=== PATIENT | male | born 1960 | race Caucasian/White ===

== ENCOUNTER 2025-08-01 17:30 | Emergency (ER) | payer BC, SELFPAY ==
[2025-08-01 18:24] VITALS: BP 177/95; PULSE 85; RESP 19; TEMP 36.7; O2SAT 96; BMI 24.3
--- NOTE | 2025-08-01 19:11 | EKG_ITS ---
[facility] Test Date: 2025-08-01 Pat Name: AMITA GASTON Department: Room: - Gender: Male [employer] Carpenter: : 1960 Requested By: Ayana Ford Order Number: [id number] Reading MD: yAana Ford Measurements Intervals Schaller Rate: 80 P: 71 WI: 145 QRS: 63 QRSD: 100 T: 109 QT: 379 QTc: 437 Interpretive Statements SINUS RHYTHM WITH OCCASIONAL VENTRICULAR PREMATURE COMPLEXES NONSPECIFIC ST & T-WAVE ABNORMALITY No previous ECG available for comparison /store/S0/[id number].pdf
--- NOTE | 2025-08-01 19:12 | PD.EDRME ---
Rapid Medical Screening Exam RME Arrival date/time: 08/01/25 17:30 This is a case of 65-year-old male with history of pneumonia came in in the emergency room due to shortness of breath and chest pain with cough persistence of the symptoms this patient decided to start consulted in the emergency room Chief Complaint: Shortness of Breath/Dyspnea Time Seen by Provider: 08/01/25 18:31 Vital signs: Vital Signs Temperature 98.0 F 08/01/25 18:24 Pulse Rate 85 08/01/25 18:24 Respiratory Rate 19 08/01/25 18:24 Blood Pressure 177/95 H 08/01/25 18:24 Pulse Oximetry (%) 96 08/01/25 18:24 Oxygen Delivery Method Room Air 08/01/25 18:24 Exam: Lung sounds wheezing rhonchi normal rate regular rhythm no murmur Clinical Impression: Shortness of breath
--- NOTE | 2025-08-01 19:13 | XR_ITS ---
EXAMINATION: PA chest single view TECHNIQUE: Upright PA chest single view Date and time: August 01, 2025, 1943 hours, comparison June 23, 2024 INDICATIONS: Shortness of breath chest pain FINDINGS: Normal heart size Median sternotomy wires Pneumonia in the left perihilar basilar region Suspicious 21 mm pulmonary nodule in the left upper lobe and suspicious for 11 mm pulmonary nodule right upper lobe Prominent osteopenia IMPRESSION: Pneumonia in the left perihilar left basilar region Recommend CT chest without contrast follow-up to exclude pulmonary masses in both the left and right lung
--- NOTE | 2025-08-01 19:15 | EDNOTE_ITS ---
ED SOB =RME/HPI General Chief Complaint: Shortness of Breath/Dyspnea Stated Complaint: SOB LUNG PAIN, THINKS HE HAS PNA AGAIN Time Seen by Provider: 08/01/25 18:31 Arrival date/time: 08/01/25 17:30 65-year-old male patient with no past medical history except for chronic smoking, came in for evaluation regarding left-sided chest discomfort. Has been having cough, worsening cough, associated with pain on coughing, especially on the left chest, severity moderate. Patient continues to smoke, consuming 1-1/2 pack of cigarettes per day. He denies any fever. Patient thinks he had pneumonia again. Patient is ambulatory. Denies any trauma or fall. RME / HPI RME / HPI Narrative: 08/01/25 17:30 This is a case of 65-year-old male with history of pneumonia came in in the emergency room due to shortness of breath and chest pain with cough persistence of the symptoms this patient decided to start consulted in the emergency room Exam: Lung sounds wheezing rhonchi normal rate regular rhythm no murmur Impression: Shortness of breath Related Data Previous Rx's ?Medication ?Instructions ?Recorded albuterol sulfate 90 mcg/actuation 2 inh inhalation Q6 H PRN shortness 08/01/25 aerosol inhaler of breath or wheezing #8.5 g amarilis levofloxacin 750 mg tablet 750 mg PO Q24H 7 days #7 ta bs 08/01/25 prednisone 50 mg tablet 50 mg PO QDAY #5 tabs Allergies Allergy/AdvReac Type Severity Reaction Status Date / Time No Known Allergies Allergy Verified 08/01/25 17:33 Review of Systems Review of Systems Narrative Review of Systems: Review of system reviewed and within normal limits except mentioned in HPI ED Exam Narrative Physical exam: VITAL SIGNS: Reviewed. GENERAL APPEARANCE: Alert and interactive, follows commands, no acute distress, HEAD AND FACE: Non-traumatic. ENT: PERRL, pink conjunctivitis, eyelid no trauma, Mucous membrane moist. NECK: Supple, nontender, no nuchal rigidity. CHEST: No tenderness, no crepitus, no paradoxical movement, no retractions. LUNGS: Clear, well ventilated, symmetric, no rales, no wheezing, no ronchi, no stridor, good breath sounds bilaterally. HEART: Regular rate, regular rhythm, no murmur, no gallops. ABDOMEN: Soft, positive bowel sounds, nondistended, no guarding, nontender, no r ebound, no masses, RECTAL: Deferred. GENITAL: Deferred. NEUROLOGICAL: Gross motor function intact sensory function intact, Appropriate for age. MUSCULOSKELETAL: low back nontender, full range of motion. EXTREMITIES: Nontender, full range of motion. SKIN: Color pink, dry, no rash, no lacerations, no abrasions, no contusions. LYMPHATICS: Deferred. Course Quality Measures none Orders Category Date Time Status EKG (ED ONLY) *Do not use* NOW Care 08/01/25 19:11 Completed EKG (ED Only) Stat Exams 08/01/25 19:11 Draft XR chest 1V Stat Exams 08/01/25 19:13 Completed BNP [B-Type Natriuretic Peptide] Stat Lab 08/01/25 19:12 Ordered CBC Stat Lab 08/01/25 19:11 Ordered Comprehensive Metabolic Panel Stat Lab 08/01/25 19:11 Ordered D-Dimer Stat Lab 08/01/25 19:12 Ordered Troponin I Stat Lab 08/01/25 19:11 Ordered Urinalysis Stat Lab 08/01/25 19:11 Ordered Levofloxacin [Levaquin] Med 08/01/25 20:40 Once 500 mg PO X1 ONE predniSONE Med 08/01/25 20:40 Once 60 mg PO X1 ONE Vital Signs Vital signs: Vital Signs Temperature 98.0 F 08/01/25 18:24 Pulse Rate 85 08/01/25 18:24 Respiratory Rate 19 08/01/25 18:24 Blood Pressure 177/95 H 08/01/25 18:24 Pulse Oximetry (%) 96 08/01/25 18:24 Oxygen Delivery Method Room Air 08/01/25 18:24 Shortness of Breath / Dyspnea MDM Narrative MDM Narrative:: 65-year-old male patient with no past medical history except for chronic smoking, came in for evaluation regarding left-sided chest discomfort. Has been having cough, worsening cough, associated with pain on coughing, especially on the left chest, severity moderate. Patient continues to smoke, consuming 1-1/2 pack of cigarettes per day. He denies any fever. Patient thinks he had pneumonia again. Patient is ambulatory. Denies any trauma or fall. Patient refused blood draw. EKG showed normal sinus rhythm, ventricular rate of 80 bpm, no ST segment elevation or depression noted. Chest x-ray showed pneumonia otherwise unremarkable. Results discussed with the patient. Patient was also advised to follow-up closely with PCP, for elective CT scan of the chest without contrast. To rule out malignancy. I also advised the patient to stop smoking. Patient agrees with the plan. Patient was noted to be satting 96% on room air. Patient data External records reviewed:: None Clinical information provided by:: patient Social determinants that could affect healthcare access:: none Patient has the following chronic illnesses:: Chronic smoker How is presenting disease/condition affected by chronic disease/condition?: exacerbated by Evaluation data The following diagnostics were reviewed and interpreted by me:: radiology exam(s) and EKG tracing(s) Lab and/or radiology exams considered but not ordered:: None Interpretation Summary: See above Medications / Prescriptions Medications or Prescriptions considered but not ordered:: None Medication administrations:: Medication Administration History Levofloxacin (Levofloxacin 250 Mg Tablet) 500 mg PO X1 ONE Stop: 08/01/25 20:41 Prednisone (Prednisone 20 Mg Tablet) 60 mg PO X1 ONE Stop: 08/01/25 20:41 Levaquin, prednisone Consultations Consultation(s) initiated? (list below): No Diagnosis Shortness of Breath Differential Diagnosis: acute exacerbation of chronic obstructive airways disease, community acquired pneumonia and other (Bronchitis) Most likely diagnosis given after review of the tests above:: Pneumonia Admission Indicated Admission indicated?: not indicated Admission Request Was there a request for admission?: No Disposition Plan Disposition Plan: Discharge Discharge Attestation Discharge Attestation: The patient was given an opportunity to ask questions and understood the discharge instructions. Discharge instructions specifically effects, indications for sooner follow up or return to the emergency department, and the expected course of current diagnosis. Patient condition: Stable Discharge Plan Plan Patient Disposition: HOME (Self Care) Discharge Disposition comment: Stable Prescriptions/Referrals Prescriptions/Med Rec: New levofloxacin 750 mg tablet 750 mg PO Q24H 7 Days Qty: 7 0RF albuterol sulfate 90 mcg/actuation HFA aerosol inhaler 2 inh inhalation Q6H PRN (Reason: shortness of breath or wheezing) Qty: 8.5 0RF prednisone 50 mg tablet 50 mg PO QDAY Qty: 5 0RF Referrals: No Primary/Family,Physician [Primary Care Provider] - In 1 week Problem List Clinical Impression: Community acquired pneumonia Patient/Caregiver Discharge Instructions Discharge Activity: activity as tolerated Education Materials: ED Pneumonia (Adult) Additional Instructions: Thank you for the opportunity for serving you today. You are stable for discharged . You are advised to: Follow-up with your PCP in 1 to 2 days Return to ED for worsening of symptoms Increase oral fluids Take medication as prescribed Print Language: [place] Stand Alone Forms: Chika Award Info., Patient Portal Info Letter PA/NEW CAR SALES MANAGER Supervising Physician PA/NEW CAR SALES MANAGER Supervising Physician: MD Moe
[2025-08-01] MEDS: LEVOFLOXACIN 250 MG TABLET 500 MG PO (20:53)
[2025-08-01 20:56] VITALS: RESP 16
== END 2025-08-01 20:56 | disposition home or self-care (01) ==
PROVIDERS: Emergency Provider Emergency Medicine
DX: J18.9 Pneumonia, unspecified organism (principal); I49.3 Ventricular premature depolarization; F17.210 Nicotine dependence, cigarettes, uncomplicated; Z71.6 Tobacco abuse counseling
CPT/HCPCS: 71045; 80053; 81001; 83880; 84484; 85025; 85379; 93005; 99283; J7512; A9270